=== PATIENT | male | born 1975 | race Asian ===

== ENCOUNTER 2016-06-02 10:53 | Inpatient (IN) | payer OTHER ==
[2016-06-02 10:59] VITALS: BMI 22.0
--- NOTE | 2016-06-02 11:44 | PDOC ---
History of Present Illness <Katrina Dalton - Last Filed: 06/02/16 15:10> - General History Source: Patient Exam Limitations: No Limitations - History of Present Illness Initial Comments: 06/02/16 11:36 41y M hx of varicose veins presents with complaint of diplopia. The pt states he was well when he woke up yesterday, while he dwas driving around yesterday afternoon, he felt his eyes drift closed, he opened his eyes and started to see double vision. Pt states he had alitlte pain i nhis eye later in the day but it has resolved. Pt denies any headache, dizziness, n/v, numbness/tingling/ weakness, neck pain, difficulty swallowing, difficulty breathing, cp, palpitations, cp, n/v. pt denies any blurry vision pt states his double vision tends to be when he looks down no prior complaints of similar sypmtoms. pt does not wear glasses or corrective lenses <Efren Tanner - Last Filed: 06/02/16 16:19> - General Chief Complaint: Difficulty with Vision Stated Complaint: DOUBLE VISION Time Seen by Provider: 06/02/16 11:03 Past History <Katrina Dalton - Last Filed: 06/02/16 15:10> - Past Medical History Other medical history: VARICOSE VEINS - Psycho/Social/Smoking Cessation Hx Anxiety: No Suicidal Ideation: No Smoking History: Current every day smoker Number of Cigarettes Smoked Daily: 5 Information on smoking cessation initiated: No 'Breaking Loose' booklet given: 06/02/16 Hx Alcohol Use: Yes (SOCIAL) Drug/Substance Use Hx: No Substance Use Type: None <Efren Tanner - Last Filed: 06/02/16 16:19> - Past Medical History Allergies/Adverse Reactions: Allergies Allergy/AdvReac Type Severity Reaction Status Date / Time No Known Allergies Allergy Verified 06/02/16 10:59 Home Medications: Ambulatory Orders NK [No Known Home Medication] 06/02/16 Review of Systems - Review of Systems Able to Perform ROS?: Yes Comments:: 06/02/16 11:46 Constitutional - no reported Fever, Chills, weakness, HEENT: no reported vision changes, sore throat Respiratory: no reported cough, sob, hemoptysis Cardiac: no reported chest pain, palpitations, light headedness, leg swelling Abd/GI: no reported abd pain, nausea, vomiting, blood per rectum, melena, diarrhea : no reported dysuria, frequency, discharge Musculskelatal - no reported back pain, joint swelling skin - no reported bruising, erythema, rash neurological: +diplopia no reported headache, numbness, focal weakness, tingling , ataxia, weakness hematologic: no reported anemia, easy bruising, easy bleeding <Efren Tanner - Last Filed: 06/02/16 16:19> *Physical Exam - Vital Signs Last Vital Signs Temp Pulse Resp BP Pulse Ox 99.2 F 84 20 116/85 99 06/02/16 10:55 06/02/16 10:55 06/02/16 10:55 06/02/16 10:55 06/02/16 10:55 <Katrina Dalton - Last Filed: 06/02/16 15:10> - Vital Signs Last Vital Signs Temp Pulse Resp BP Pulse Ox 99.2 F 84 20 116/85 99 06/02/16 10:55 06/02/16 10:55 06/02/16 10:55 06/02/16 10:55 06/02/16 10:55 - Physical Exam Comments: 06/02/16 11:48 GENERAL: The patient is awake, alert, and fully oriented, Nontoxic - in no acute distress. HEAD: Normocephalic, atraumatic. EYES: ptosis of L eye lid, extraocular movements intact, (+diplopia when looking inferior santillan of vision), pupils 3mm and reactive symmetrically ENT: Normal voice, Moist mucous membranes. NECK: Normal range of motion, supple LUNGS: Breath sounds equal, clear to auscultation bilaterally. No wheezes, no rhonchi, no rales. HEART: Regular rate and rhythm, normal S1 and S2 without murmur, rub or gallop. ABDOMEN: Soft, nontender, normoactive bowel sounds. No guarding, no rebound. . No CVA tenderness EXTREMITIES: Normal range of motion, no edema. hyperpigmentation in the medial aspect o fLE, No clubbing or cyanosis. No cords, erythema, or tenderness. NEUROLOGICAL: No facial assymetry, Normal speech, sensation grossly intact, cn2- 12 intact, motor 5/5 in upper/lower extermities and symmetric PSYCH: Normal mood, normal affect. SKIN: Warm, Dry, normal turgor, 06/02/16 12:40 <Efren Tanner - Last Filed: 06/02/16 16:19> Heart Score/ECG Review - ECG Impressions Comment:: 06/02/16 11:49 Twelve-lead EKG was performed and reviewed by me. There is normal sinus rhythm with a normal rate. Left axis deviation incomplete RBBB no ST changes suggestive of ischemia <Efren Tanner - Last Filed: 06/02/16 16:19> ED Treatment Course - LABORATORY CBC & Chemistry Diagram: 06/02/16 11:30 06/02/16 11:30 - ADDITIONAL ORDERS Additional order review: Laboratory Results 06/02/16 06/02/16 11:46 11:30 Sodium 139 Potassium 4.1 Chloride 101 Carbon Dioxide 28 Anion Gap 10 BUN 14 Creatinine 0.9 Creat Clearance w eGFR > 60 Random Glucose 100 Calcium 9.4 Magnesium 1.8 Total Bilirubin 0.8 AST 28 ALT 42 Alkaline Phosphatase 42 L Total Protein 7.4 Albumin 4.0 TSH 1.02 - RADIOLOGY Radiograph Interpretation: 06/02/16 15:10 EXAM: CT/HEAD CT WITHOUT CONTRAST IMPRESSION: Negative exam. No discrete noncontrast intracranial CT abnormality is identified. Incidental note is made of marked left frontal, moderate to marked bilateral ethmoid and mild to moderate sphenoid sinus mucosal thickening consistent with chronic/subacute sinusitis. EXAM: RAD/CHEST X-RAY PORTABLE IMPRESSION: 2 views reveal clear lungs, normal mediastinum and sharp angles. The bones and soft tissues are intact. 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 <Katrina Dalton - Last Filed: 06/02/16 15:10> - Medical Decision Making 06/02/16 11:36 sudden onset of ptosis and binocular diplopia in the inferior santillan of vision suspect mild paretic rectus as unable to appreciate any abnormality of EOMI differential includes myastenia gravis, third nerve plasy, MS, brainstem cva will obtain lab work,ct will discus sw/ neurology and pmd 06/02/16 12:41 ct head negative will notify neurology 06/02/16 12:41 06/02/16 13:[address] zhou will see the pt in 2 hrs and will dispo accordingly. 06/02/16 16:10 case nhi zhou will need MRI/MRA to r/o aneurysms will need admission for further management an workup will page dr. Burgos. 06/02/16 16:18 case nhi fu agreed with admission for further managment of his ptosis and diplopia stable for med/surg Case discussed in detail with admitting physician including history, physical exam and ancillary studies. Admitting physician has assumed care for the patient, will follow all pending diagnostics and will complete the evaluation and treatment. <Efren Tanner - Last Filed: 06/02/16 16:19> *DC/Admit/Observation/Transfer - Attestations Scribe Attestion: 06/02/16 12:48 Documentation prepared by Katrina Dalton, acting as manager medical for Efren Tanner MD. <Katrina Dalton - Last Filed: 06/02/16 15:10> - Discharge Dispostion Admit: Yes <Efren Tanner - Last Filed: 06/02/16 16:19> Diagnosis at time of Disposition: Diplopia, Ptosis of eyelid, left - Discharge Dispostion Condition at time of disposition: Guarded - Referrals Referrals: Sirisha Rosado MD [Primary Care Provider] -
[2016-06-02 12:21] LABS: ANION GAP 10 (8-16); CALCIUM 9.4 mg/dL (8.5-10.1); CO2 28 mmol/L (21-32); CREATININE 0.9 mg/dL (0.7-1.3); GLUCOSE,RANDOM 100 mg/dL (74-106); MAGNESIUM 1.8 mg/dL (1.8-2.4); SGOT/AST 28 U/L (15-37); SGPT/ALT 42 U/L (12-78)
[2016-06-02 12:23] LABS: ALK PHOS 42 U/L (45-117); BILIRUBIN,TOTAL 0.8 mg/dL (0.2-1.0); TOT PROT 7.4 g/dl (6.4-8.2)
[2016-06-02 12:44] LABS: BASOPHIL 0.6 % (0-2.0); EOSINOPHIL 2.5 % (0-4.5); MCH 32.3 pg (25.7-33.7); MCHC 33.1 g/dl (32.0-35.9); MEAN CELL VOLUME 97.6 fl (80-96); MEAN PLT VOLUME 9.6 fl (7.5-11.1); NEUTROPHILS 74.4 % (42.8-82.8); PLATELET COUNT 171 K/MM3 (134-434); RDW 12.6 % (11.9-15.9); WHITE BLOOD COUNT 7.1 K/mm3 (4.0-10.0)
[2016-06-02 15:02] LABS: TROPONIN I < 0.02 ng/ml (0.00-0.05)
--- NOTE | 2016-06-02 16:16 | CONSULT ---
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 No sig PMH or surgical history. Six months ago his sister in [place] pointed out a "sleepy" left eye on his facebook photos. He believes this comes and goes. Yesterday afternoon, while delivering, he first experienced double vision which has waxed an d waned since that time. Usually horizontal but variable. Worst looking down and to the right. Do changes in speech or swallowing. CT of head (reviewed): Normal study. OSCAR: Normal NEURO: MS/Speech: Normal CN II-XII: Left ptosis with fatigue. UC3VMSN. Full EOM's with some fatigue on abduction OD. Mild lateral tongue weakness. Gag normal. motor: No drift. Normal strength, tone and bulk throughout. Normal reflexes. Toes downgoing. Coord: No FTN dystaxia. Sensory: Normal. Romberg neg Gait: Normal. Walks heals, toes, tandems. IMP: Probable Myasthenia Gravis (Ophthalmic) SUGGEST: Admit to expedite workup and observe for worsening. MRI of brain (C-/C+) to exclude demyelinating disease (MS). MR Angio of [place] to exclude Left Posterior Communicating Artery (PComm) aneurysm. Antiacetylcholine receptor and anti-MUsK antibodies. Neuro f/u as out patient. Thank you very much, Rex Elias MD
[2016-06-02] MEDS ORDERED: SODIUM CHLORIDE IM SCH (20:00)
[2016-06-02] MEDS ORDERED: THIAMINE HCL IM SCH (20:00)
[2016-06-02] MEDS ORDERED: SODIUM CHLORIDE IVPB SCH (20:50)
[2016-06-02] MEDS ORDERED: THIAMINE HCL IVPB SCH (20:50)
[2016-06-02] MEDS: THIAMINE HCL IVPB SCH (22:11)
[2016-06-02] MEDS: SODIUM CHLORIDE IVPB SCH (22:11)
--- NOTE | 2016-06-02 22:27 | EKG ---
Test Reason : Blood Pressure : / mmHG Vent. Rate : 061 BPM Atrial Rate : 061 BPM P-R Int : 152 ms QRS Dur : 110 ms QT Int : 388 ms P-R-T Axes : 038 -59 017 degrees QTc Int : 390 ms NORMAL SINUS RHYTHM LEFT AXIS DEVIATION PULMONARY DISEASE PATTERN INCOMPLETE RIGHT BUNDLE BRANCH BLOCK SEPTAL INFARCT , AGE UNDETERMINED ABNORMAL ECG NO PREVIOUS ECGS AVAILABLE Confirmed by JAGDISH DURANT MD ([id number]) on 06/02/2016 10:27:38 PM Referred By: Confirmed By:JAGDISH DURANT MD
[2016-06-03] MEDS: chlordiazePOXIDE HCL 25 MG CAPSULE PO SCH ×4 (00:45→17:05)
[2016-06-03] MEDS: SODIUM CHLORIDE IVPB SCH ×3 (02:43→17:05)
[2016-06-03] MEDS: THIAMINE HCL IVPB SCH ×3 (02:43→17:05)
--- NOTE | 2016-06-03 16:46 | HP ---
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 He had a similar episode the day before yesterday night. He also noticed some lid lagging on the left eye. The complaints according to him is more on the left side. He was seen in my office 3 days prior to this with varicose veins and stasis ulcers both legs. I treated him with doxycycline, and addressed venous stasis with venous supportive stockings. PERSONAL HISTORY: He is with . No family history, not significant. No history of CVA in the family. Not a smoker . No alcohol abuse. Drinks socially. PHYSICAL EXAMINATION: General: Awake, alert, oriented, not in distress. Vital signs: Blood pressure 140/80, pulse 72, respirations 20, temperature 98. HEENT: Eyes, there is minimal left eyelid lagging. PERRLA. HENT unremarkable. Neck: Supple. No JVD. Lungs: Clear. Heart: S1, S2 normal. No S3, S4. Abdomen: Soft. Extremities: Legs no edema. There are stasis ulcers and varicose veins. Neurologic: Grossly normal. CAT scan of the head negative. Chest x-ray negative. EKG normal sinus rhythm. LABORATORY: WBC 7.1, hemoglobin 14.9. Chemistry: sodium 139, potassium 4.1, chloride 101. Magnesium, calcium, TSH all normal. Evaluated by Dr. Elias on the floor, advised MRI of the head and MRA of the head. He is on Librium and thiamine, possible ETOH withdrawal. FINAL DIAGNOSIS: Transient ischemic attack secondary to alcohol abuse. PLAN: Continue and thiamine. Ordered MRI, and MRA ordered. Rojelio [id number]
[2016-06-03] MEDS ORDERED: chlordiazePOXIDE HCL 25 MG CAPSULE PO SCH (19:15)
[2016-06-04] MEDS: chlordiazePOXIDE HCL 25 MG CAPSULE PO SCH ×2 (00:13→05:59)
[2016-06-04] MEDS: THIAMINE HCL IVPB SCH (01:50)
[2016-06-04] MEDS: SODIUM CHLORIDE IVPB SCH (01:50)
--- NOTE | 2016-06-04 09:32 | DS ---
Physical Examination Vital Signs: Vital Signs Temperature 97.5 F L 06/04/16 06:00 Pulse Rate 75 06/04/16 06:00 Respiratory Rate 18 06/04/16 06:00 Blood Pressure 107/69 06/04/16 06:00 O2 Sat by Pulse Oximetry (%) 98 06/03/16 21:00 Findings/Remarks: MRI and MRA neg Constitutional: Yes: No Distress Eyes: Yes: WNL HENT: Yes: WNL Neck: Yes: WNL Cardiovascular: Yes: WNL Respiratory: Yes: WNL Gastrointestinal: Yes: WNL ...Rectal Exam: Yes: WNL Renal/: Yes: WNL Musculoskeletal: Yes: WNL Extremities: Yes: WNL Edema: Yes Neurological: Yes: WNL Psychiatric: Yes: WNL Discharge Summary Reason For Visit: DIPLOPIA, PTOSIS OF LEFT EYELID Current Active Problems Diplopia (Acute) Ptosis of eyelid, left (Acute) Condition: Guarded - Instructions Referrals: Sirisha Rosado MD [Primary Care Provider] - - Home Medications Comprehensive Discharge Medication List: Ambulatory Orders Doxycycline Hyclate [Vibramycin -] 100 mg PO BID 06/02/16 Triamcinolone 0.1% Cream [Aristocort] 1 applic TP BID 06/02/16
[2016-06-04 09:43] VITALS: BP 109/71; PULSE 71; TEMP 98.4
== END 2016-06-04 10:11 | disposition home or self-care (01) | DRG 82 ==
LOC: JER 10:53 → JERBED 16:19 → J6S 18:26
PROVIDERS: ADMIT Internal Medicine; ATTEND Internal Medicine
DX: H02.402 Unspecified ptosis of left eyelid (principal); H53.2 Diplopia; F17.210 Nicotine dependence, cigarettes, uncomplicated
CPT/HCPCS: 36415; 70450-TC; 70544-TC; 70553-TC; 71010-TC; 80053; 82550; 82553; 83036; 83519; 83735; 84443; 84484; 85025; 93005; 93010; 99285-25